=== PATIENT | male | born 1960 | race Caucasian/White ===

== ENCOUNTER 2016-11-01 07:00 | Inpatient (IN) | payer OTHER ==
[2016-11-02 05:47] LABS: HCT 36.6 % (42.0-52.0); HGB 12.5 g/dl (13.2-18.0); MCH 29.8 pg (25.0-31.0); MCHC 34.2 g/dL (32.0-36.0); MCV 87.4 fL (78.0-100.0); MPV 9.5 fL (6.0-9.5); RBC 4.19 M/uL (4.70-6.00); RDW 12.8 % (11.5-14.0); WBC 14.4 K/uL (4.0-10.5)
[2016-11-02 06:10] LABS: CREATININE 1.1 mg/dL (0.7-1.2)
[2016-11-03 05:46] LABS: HCT 37.5 % (42.0-52.0); HGB 12.8 g/dl (13.2-18.0); MCH 30.5 pg (25.0-31.0); MCHC 34.1 g/dL (32.0-36.0); MCV 89.3 fL (78.0-100.0); MPV 9.5 fL (6.0-9.5); RBC 4.2 M/uL (4.70-6.00); RDW 13.1 % (11.5-14.0); WBC 7.6 K/uL (4.0-10.5)
[2016-11-03 06:08] LABS: CREATININE 1.1 mg/dL (0.7-1.2)
[2016-11-04 05:20] LABS: HCT 38.9 % (42.0-52.0); HGB 13.3 g/dl (13.2-18.0); MCHC 34.2 g/dL (32.0-36.0); MCV 87.6 fL (78.0-100.0); MPV 9.2 fL (6.0-9.5); RBC 4.44 M/uL (4.70-6.00); RDW 12.8 % (11.5-14.0); WBC 7.5 K/uL (4.0-10.5)
[2016-11-04 05:33] LABS: CREATININE 1.1 mg/dL (0.7-1.2); POTASSIUM 4.5 mmol/L (3.5-5.1)
== END 2016-11-04 16:54 | DRG 470 ==
LOC: FMS 07:00
PROVIDERS: Internal Medicine; ADMIT Orthopaedic Surgery
PROC: 8E0YXBZ Computer Assisted Procedure of Lower Extremity (ICD-10-PCS; 2016-11-01)
PROC: 0SRC0J9 Replacement of Right Knee Joint with Synthetic Substitute, Cemented, Open Approach (ICD-10-PCS; principal; 2016-11-01 07:00)
DX: M17.11 Unilateral primary osteoarthritis, right knee (principal); I10 Essential (primary) hypertension; E78.5 Hyperlipidemia, unspecified; I25.10 Atherosclerotic heart disease of native coronary artery without angina pectoris; G47.30 Sleep apnea, unspecified; E78.00 Pure hypercholesterolemia, unspecified; Z79.82 Long term (current) use of aspirin; Z79.01 Long term (current) use of anticoagulants
CPT/HCPCS: 36415; 73560; 80048; 86850; 86900; 86901; 88305; 88311; 94010; 94760; 94762; 97110; 97116; 97162; 97165; 97530-GP; 97535; C1713; C1776; J0131; J0697; J1100; J1170; J1885; J2270; J2405; J2704; J2795; J3010

== ENCOUNTER 2016-11-04 15:41 | Inpatient (IN) | payer OTHER ==
[~2016-11-04] VITALS: Ht 167.6 cm; Wt 98.5 kg
--- NOTE | 2016-11-06 15:11 | NUR ---
1356- PT C/O DIZZINESS AND "GETTING REAL SWEATY" WHILE SITTING IN THE CHAIR. V/S BP-133/61 HR-65, R-16, T-97.7, O2- 95% GLUCOSE-112, EKG OBTAINED DR. NING HERNANDEZ CONTACTED. SEE ORDERS FOR LAB WORK 1415- PT STATES HE IS FEELING BETTER. FAMILY AT BEDSIDE 1445- PT SLEEPING IN CHAIR
[2016-11-06 16:06] LABS: CKMB 2.52 ng/mL (0.97-4.94); TROPONIN T < 0.010 ng/mL
[2016-11-06 21:12] LABS: CKMB 2.58 ng/mL (0.97-4.94); TROPONIN T < 0.010 ng/mL
[2016-11-07 03:05] LABS: CKMB 2.47 ng/mL (0.97-4.94); TROPONIN T < 0.010 ng/mL
--- NOTE | 2016-11-08 15:19 | NUR ---
CONTACTED [facility] [phone] PER ADA WITH [employer], TO CHECK ON PT. THERAPY. SPOKE WITH ALEXA. SHE STATED THEY ARE WAITING ON A PREAUTHORIZATION. ADVISED THAT PT. IS REQUESTING [facility]. SHE ADVISED THAT THEY ARE IN NETWORK AND WOULD NOT BE A PROBLEM WHEN THE AUTH IS RECEIVED. SHE ADVISED THAT THEIR SCHEUDLER WOULD MAKE HIS APPT. PER ADA, SHE ADVISED TO CALL [facility] [phone] TO CHECK ON DME. SPOKE WITH ALVIN WHO ADVISED THAT THE [employer], [employer], IS WORKING ON THE CASE AND WILL LET ME KNOW WHEN APPROVED.
--- NOTE | 2016-11-09 13:11 | NUR ---
PT. TO D/C HOME WITH SPOUSE THIS DATE. PT. REQUESTED OUTPT. THERAPY AT [facility]. FIRST APPT. IS 11/10/16 @ 1:00 P.M. [facility] TO DELIVER A ROLLING WALKER, 08/03 AND SHOWER BENCH UPON DISCHARGE. D/C NOTICE AND QUESTIONNAIRE GIVEN.
--- NOTE | 2016-11-09 14:26 | NUR ---
DISCUSSED DISCHARGE INSTRUCTIONS WITH PATIENT AND . PT IN STABLE CONDITION. DRESSING C/D/I
== END 2016-11-09 14:26 | disposition home or self-care (01) | DRG 554 ==
LOC: FSNU 15:41
PROVIDERS: Internal Medicine; ADMIT Orthopaedic Surgery
DX: M17.11 Unilateral primary osteoarthritis, right knee (principal); I10 Essential (primary) hypertension; Z47.1 Aftercare following joint replacement surgery; Z96.651 Presence of right artificial knee joint; E78.5 Hyperlipidemia, unspecified; I25.10 Atherosclerotic heart disease of native coronary artery without angina pectoris; G47.30 Sleep apnea, unspecified; E78.00 Pure hypercholesterolemia, unspecified; Z79.82 Long term (current) use of aspirin; Z79.01 Long term (current) use of anticoagulants
CPT/HCPCS: 36415; 82550; 82553; 84484; 90732; 93005; 97110; 97116; 97161; 97530; 97530-GP; 97537